=== PATIENT | female | born 1955 | race Caucasian/White ===

== ENCOUNTER 2022-01-20 08:08 | Emergency (ER) | payer MEDICARE, OTHER ==
[2022-01-20] MEDS ORDERED: Ketorolac 15 MG/ML SDV IVPUSH ONE (08:23)
[2022-01-20] MEDS ORDERED: Ondansetron 4 MG/2 ML SDV IVPUSH ONE (08:23)
[2022-01-20] MEDS ORDERED: Sodium Chloride 0.9% 500 ML IV STA (08:23)
[2022-01-20] MEDS ORDERED: Metoclopramide 10 MG/2 ML SDV IVPUSH ONE (09:51)
[2022-01-20] MEDS ORDERED: diphenhydrAMINE 50 MG/ML SDV IVPUSH ONE (09:51)
[2022-01-20] MEDS ORDERED: Morphine 4 MG/ML Syringe IVPUSH ONE (10:33)
== END 2022-01-20 14:20 | disposition home or self-care (01) ==
LOC: JD.ED 08:08
DX: N23 Unspecified renal colic (principal); Z88.5 Allergy status to narcotic agent
CPT/HCPCS: 36415; 71045; 80048; 81001; 85025; 96374; 96375; 99284; J1200; J1885; J2270; J2405; J2765; J7030

== ENCOUNTER 2022-01-21 17:19 | Emergency (ER) | payer MEDICARE ==
[2022-01-21] MEDS ORDERED: Ondansetron 4 MG Tab.DIS PO ONE (18:53)
== END 2022-01-21 20:15 | disposition home or self-care (01) ==
LOC: JD.ED 17:19
DX: R11.2 Nausea with vomiting, unspecified (principal); I10 Essential (primary) hypertension; Z90.710 Acquired absence of both cervix and uterus; Z88.5 Allergy status to narcotic agent
CPT/HCPCS: 99283; A9270